=== PATIENT | male | born 1980 | race Caucasian/White ===

== ENCOUNTER 2018-06-21 15:22 | Emergency (ER) | payer OTHER ==
[~2018-06-21] VITALS: Ht 193 cm; Wt 103.4 kg
[~2018-06-21 15:22] MED LIST: NAPROSYN500 MG PO; NOHOMEMEDICATIONS; NORCO 5-325 TA1 EACH PO
[2018-06-21] MEDS ORDERED: ROBAXIN500 MG PO (16:17)
[2018-06-21 16:25] VITALS: BP 145/88
== END 2018-06-21 16:25 | disposition home or self-care (01) ==
LOC: M.ERS 15:22
DX: S29.012A Strain of muscle and tendon of back wall of thorax, initial encounter (principal); V49.49XA Driver injured in collision with other motor vehicles in traffic accident, initial encounter; Y93.89 Activity, other specified; Y92.89 Other specified places as the place of occurrence of the external cause; Y99.8 Other external cause status